=== PATIENT | male | born 1970 | race Hispanic/Latino ===

== ENCOUNTER → 2016-11-08 | Outpatient (CLI) | payer OTHER ==
[2016-11-08 14:43] LABS: ANION GAP 7 MEQ/L (8-16); BLOOD UREA NITROGEN 23 MG/DL (7-18); CARBON DIOXIDE LEVEL 28 MEQ/L (21-32); CHLORIDE LEVEL 105 MEQ/L (98-107); CREATININE FOR GFR 1.02 MG/DL (0.70-1.30); GLOMERULAR FILTRATION RATE > 60.0 (>60); GLUCOSE, FASTING 102 MG/DL (70-105); POTASSIUM SERUM 4.2 MEQ/L (3.5-5.1); SODIUM LEVEL 140 MEQ/L (136-145)
== END ==
LOC: M LAB 13:48
PROVIDERS: ATTEND Ophthalmology
DX: Z01.818 Encounter for other preprocedural examination (principal)

== ENCOUNTER → 2016-11-23 | Day surgery (SDC) | payer OTHER ==
[~2016-11-23] VITALS: Ht 177.8 cm; Wt 74.8 kg
[~2016-11-23] MED LIST: CYMB1CAP4 PO; D5W/0.2% SODIUM CHLORIDE 1,000 ML IV SCH; D5W/0.2% SODIUM CHLORIDE 250 ML IV SCH; LIDOCAINE 2% W/EPIN INJ 20ML **PRES FREE As Ordered ONE; LIDOCAINE 2% W/EPIN INJ 20ML **PRES FREE XX ONE; LIDOCAINE 4% INJ 5 ML AMP XX ONE; MIDAZOLAM INJ 2 MG/2 ML VIAL (J2250) As Ordered ONE; MITOMYCIN XX ONE; NACL XX ONE; NAPR500T2 PO; OFLOXACIN 0.3 % (OCUFLOX) OPTH SOL 5ML As Ordered ONE; OFLOXACIN 0.3 % (OCUFLOX) OPTH SOL 5ML OS ONE; ONDANSETRON 4MG/2ML VIAL (J2405) IV PRN; PERCOCET 5MG/325MG TAB PO PRN; POVIDONE-IODINE 5% OPHTH PREP SOL 30ML As Ordered ONE; REFR0.5D8 OU; TOBRADEX OPHTH OINT 3.5 GM As Ordered ONE; TOBRADEX OPHTH OINT 3.5 GM XX ONE; fentaNYL 100 MCG/2 ML INJECTION (J3010) As Ordered ONE; prednisoLONE ACET 1% OPHTH SUSP 5ML As Ordered ONE; prednisoLONE ACET 1% OPHTH SUSP 5ML XX ONE
[2016-11-23 14:25] VITALS: BP 126/75
--- NOTE | 2016-11-24 10:30 | RO ---
DATE OF PROCEDURE: 11/23/2016 PREOPERATIVE DIAGNOSIS: 1. 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 POSTOPERATIVE DIAGNOSIS: 1. Same PROCEDURE: Excision of pterygium with use of 0.02% concentration of mitomycin, 0.1 mL, placement of amniotic membrane, left eye SURGEON: Fransisco Marte DO COMMUNICATIONS TECHNICIAN: None ANESTHESIA: Local with peribulbar anesthesia (lidocaine 1%, epinephrine approximately 0.5 mL) ESTIMATED BLOOD LOSS: 0 DRAINS: 0 SPECIMEN. Pterygium sent to pathology. REPLACED: 0 COMPLICATIONS: None. DESCRIPTION OF PROCEDURE: The patient was seen in the preoperative area and properly identified. The correct operative eye was identified and marked. Attention was turned to that eye. The patient was then transferred to the operating room. The correct side was reidentified. The patient received topical anesthetics. The eye was prepped and draped in a sterile fashion. The upper and lower eyelids were isolated with Tegaderm tape, and the lids were held open with an adjustable speculum. 1% Lidocaine with epinephrine was injected into the head of the pterygium, approximately 0.5cc, then spread with cotton tip applicators. Using lele scissors and .12 forceps, the head of the pterygium was removed from the cornea then sent to pathology. Subtenon's tissue was excised from the overlying conjunctiva and discarded. Using a straight [place] blade, the cornea was debrided until smooth. Minimal wet-field cautery was applied to any bleeding vessels. The sclera was dried with weck villa. 0.02% mitomycin C was injected into the edge of the retracted conjunctiva for a total dose of 0.1mL. The MMC was then vigorously washed away with BSS. The sclera was again meticulously dried with weck villa. The conjunctival defect was measured, and found to be 4 x 4mm. The amniotic membrane tissue was sized 2mm over the defect, 6 x 6mm, then cut to appropriate size. The tissue was placed on the sclera and anchored to the limbus with two 10-0 nylon sutures. Tissel glue was placed, first fibrin underneath the amniotic membrane then thrombin. The mixture was smoothed with curved tying forceps. A collagen shield soaked in ofloxacin and prednisolone was placed on the eye. The eyelid speculum was then carefully removed. Maxitrol ointment was placed in the eye. An eye patch and shield were then secured over the eye. The patient tolerated the procedure well and was discharged to the recovery unit in a stable condition. SUDHA
== END | disposition home or self-care (01) ==
LOC: M SDC 09:36 → EDUNIT# 11:15
PROVIDERS: ATTEND Ophthalmology
DX: H11.052 Peripheral pterygium, progressive, left eye (principal); M54.5 Low back pain; Z79.899 Other long term (current) drug therapy
CPT/HCPCS: 65426; 88304; A6024; C1762; J2250; J3010; J7315

== ENCOUNTER → 2018-03-05 | Outpatient (CLI) | payer OTHER ==
[~2018-03-05] MED LIST changes: -CYMB1CAP4 PO; -D5W/0.2% SODIUM CHLORIDE 1,000 ML IV SCH; -D5W/0.2% SODIUM CHLORIDE 250 ML IV SCH; -LIDOCAINE 2% W/EPIN INJ 20ML **PRES FREE As Ordered ONE; -LIDOCAINE 2% W/EPIN INJ 20ML **PRES FREE XX ONE; -LIDOCAINE 4% INJ 5 ML AMP XX ONE; +METHACHOLINE KIT (J7674) INH; -MIDAZOLAM INJ 2 MG/2 ML VIAL (J2250) As Ordered ONE; -MITOMYCIN XX ONE; -NACL XX ONE; -NAPR500T2 PO; -OFLOXACIN 0.3 % (OCUFLOX) OPTH SOL 5ML As Ordered ONE; -OFLOXACIN 0.3 % (OCUFLOX) OPTH SOL 5ML OS ONE; -ONDANSETRON 4MG/2ML VIAL (J2405) IV PRN; -PERCOCET 5MG/325MG TAB PO PRN; -POVIDONE-IODINE 5% OPHTH PREP SOL 30ML As Ordered ONE; -REFR0.5D8 OU; -TOBRADEX OPHTH OINT 3.5 GM As Ordered ONE; -TOBRADEX OPHTH OINT 3.5 GM XX ONE; -fentaNYL 100 MCG/2 ML INJECTION (J3010) As Ordered ONE; -prednisoLONE ACET 1% OPHTH SUSP 5ML As Ordered ONE; -prednisoLONE ACET 1% OPHTH SUSP 5ML XX ONE
== END ==
LOC: M CARPUL 10:05
DX: R06.02 Shortness of breath (principal)
CPT/HCPCS: J7674

== ENCOUNTER → 2018-06-17 | Outpatient (CLI) | payer OTHER | LOC: M RAD 10:50 | DX: R09.89 Other specified symptoms and signs involving the circulatory and respiratory systems (principal) | CPT/HCPCS: 93970 ==

== ENCOUNTER → 2022-11-01 | Outpatient (CLI) | payer OTHER ==
[~2022-11-01] MED LIST changes: +CYMB1CAP4 PO; -METHACHOLINE KIT (J7674) INH; +NAPR-885 PO; +REFR0.5D8 OU
== END ==
LOC: M RAD 16:11
PROVIDERS: ATTEND Nurse Practitioner Adult Health
DX: J45.40 Moderate persistent asthma, uncomplicated (principal)

== ENCOUNTER → 2023-11-02 | Outpatient (CLI) | payer OTHER | LOC: M RAD 08:55 | PROVIDERS: ATTEND Internal Medicine Cardiovascular Disease | DX: I65.23 Occlusion and stenosis of bilateral carotid arteries (principal) ==